=== PATIENT | female | born 1965 | race Caucasian/White ===

== ENCOUNTER 2021-03-28 16:08 | Emergency (ER) | payer MEDICAID ==
[2021-03-28 18:57] LABS: BILIRUBIN,URINE NEGATIVE (NEGATIVE); GLUCOSE, URINE (UA) NEGATIVE (NEGATIVE); KETONES,URINE (UA) NEGATIVE (NEGATIVE); LEUKOCYTE ESTERASE, URINE MODERATE (NEGATIVE); NITRITE,URINE POSITIVE (NEGATIVE); OCCULT BLOOD,URINE SMALL (NEGATIVE); PH,URINE 6.5 PH (5.0-7.5); PROTEIN,URINE TRACE mg/dL (NEGATIVE); UROBILINOGEN,URINE 0.2 (NORMAL) E.U./dL (NORMAL)
[2021-03-28 18:58] LABS: CLARITY,URINE HAZY (CLEAR)
[2021-03-28 19:01] LABS: HCG UR QUAL NEGATIVE
[2021-03-28] MEDS ORDERED: cephALEXin 250 MG CAPSULE PO STA (19:14)
[2021-03-28] MEDS ORDERED: PHENAZOPYRIDINE 100 MG TABLET PO STA (19:14)
[2021-03-28 19:16] LABS: BACTERIA,URINE Moderate /HPF (None Seen); SQUAMOUS EPITHELIAL CELL,UR NONE SEEN (<= Few)
--- NOTE | 2021-03-28 19:16 | ED Physician Documentation ---
History of Present Illness - Stated complaint Stated Complaint: FEMALE - Chief complaint Chief Complaint: UTI - Additonal information Additional information: 55-year-old female presents the emergency department for evaluation of dysuria urgency and frequency for about 1 week. No fevers no vomiting. No flank pain. No history of recurrent UTI. No history of renal stones she otherwise appears very well. Nondiabetic. Review of Systems Constitutional: reports: Reviewed and negative Nose: reports: Reviewed and negative Throat: reports: Dental pain / toothache Cardiac: reports: Reviewed and negative Respiratory: reports: Reviewed and negative GI: reports: Abdominal Pain. denies: Nausea, Vomiting, Constipation, Bloody / black stool : reports: Dysuria, Frequency, Hesitancy. denies: Hematuria Skin: reports: Reviewed and negative PD PAST MEDICAL HISTORY - Past Medical History Past Medical History: Yes Cardiovascular: Hypertension Respiratory: None Neuro: None Endocrine/Autoimmune: None GI: GERD BIOMEDICAL EQUIPMENT SPECIALIST: None : None HEENT: Chronic vision loss Psych: None Musculoskeletal: None - Past Surgical History Past Surgical History: No - Present Medications Home Medications: Ambulatory Orders Medication Instructions Recorded Confirmed Phenazopyridine HCl [Pyridium] 200 mg PO TID #6 tablet 03/28/21 cephALEXin [Keflex] 500 mg PO BID #14 03/28/21 - Allergies Allergies/Adverse Reactions: Allergies Allergy/AdvReac Type Severity Reaction Status Date / Time No Known Drug Allergies Allergy Verified 03/28/21 16:17 - Social History Does the pt smoke?: No Smoking Status: Never smoker Does the pt drink ETOH?: No Does the pt have substance abuse?: No - Immunizations Immunizations are current?: Yes - POLST Patient has POLST: No PD ED PE NORMAL - General General: Alert and oriented X 3, No acute distress - HEENT HEENT: PERRL - Cardiac Cardiac: RRR, No murmur - Respiratory Respiratory: Clear bilaterally - Abdomen Abdomen: Normal bowel sounds, Soft, Non distended. No: Non tender (Mild suprapubic tenderness without guarding or rebound. No flank pain. No CVA tenderness.) - Female Female : Deferred Results - Vitals Vitals: Vital Signs - 24 hr 03/28/21 16:13 Temperature 37.6 C Heart Rate 111 H Respiratory 16 Rate Blood Pressure 157/72 H O2 Saturation 98 Oxygen O2 Source Room air - Labs Labs: Laboratory Tests 03/28/21 18:48 Urine Color YELLOW Urine Clarity HAZY Urine pH 6.5 Ur Specific [place] 1.010 Urine Protein TRACE Urine Glucose (UA) NEGATIVE Urine Ketones NEGATIVE Urine Occult Blood SMALL H Urine Nitrite POSITIVE H Urine Bilirubin NEGATIVE Urine Urobilinogen 0.2 (NORMAL) Ur Leukocyte Esterase MODERATE H Ur Microscopic Review INDICATED Urine Culture Comments Not Reportable Urine HCG, Qual NEGATIVE PD MEDICAL DECISION MAKING - ED course Complexity details: reviewed results ED course: This is a well-appearing 55-year-old female that presents emergency department with 1 week of dysuria urgency and frequency. UA is consistent with infection. However exam and history is not consistent with an ascending or pyelonephritis. Patient was given Keflex and Pyridium here. Will be discharged with 1 week of Keflex. Emergent return precautions were discussed for worsening symptoms. Departure - Departure Disposition: Home, Self Care Clinical Impression: Acute cystitis Qualifiers: Hematuria presence: without hematuria Qualified Code(s): N30.00 - Acute cystitis without hematuria Condition: Stable Record reviewed to determine appropriate education?: Yes Instructions: ED UTI Cystitis Female Prescriptions: cephALEXin [Keflex] 500 mg PO BID #14 Phenazopyridine HCl [Pyridium] 200 mg PO TID #6 tablet Comments: Infection. Your firstMarianne you do have a of antibiotic was given here in the ER. We also prescribed a medication called Pyridium that will help reduce the bladder pain discomfort and spasm. It will however turn your urine bright orange. Tomorrow morning please fill the prescription for the cephalexin to begin taking twice daily for the next 7 days. If at any point your symptoms are worsening, you develop fevers develop sudden severe belly pain have uncontrolled vomiting please return to the ER for a second evaluation.
[2021-03-28 19:21] VITALS: BP 140/71
== END 2021-03-28 19:21 | disposition home or self-care (01) ==
LOC: ED 16:08
DX: N30.00 Acute cystitis without hematuria (principal); I10 Essential (primary) hypertension
CPT/HCPCS: 81001; 81025; 87086; 87181; 99283; A9270; 81003

== ENCOUNTER 2021-03-31 15:27 | Emergency (ER) | payer MEDICAID ==
[2021-03-31 15:46] VITALS: BP 144/70
[2021-03-31] MEDS ORDERED: MECLIZINE 12.5 MG TABLET PO STA (16:00)
--- NOTE | 2021-03-31 16:02 | ED Physician Documentation ---
History of Present Illness - Stated complaint Stated Complaint: VOMIT/FEVER/DIZZY - Chief complaint Chief Complaint: General - History obtained from History obtained from: Patient - Additonal information Additional information: Fairly healthy 55-year-old woman was seen here on Tuesday for cystitis. Started on cephalexin. This morning she developed vertigo and vomiting. It is worse if she turns her head. She had a headache on Tuesday when that she had a cystitis and that is much better now. Denies any other neurologic symptoms. Review of Systems Constitutional: denies: Fever, Chills Eyes: reports: Reviewed and negative Ears: reports: Reviewed and negative Nose: reports: Reviewed and negative Throat: reports: Reviewed and negative Cardiac: reports: Reviewed and negative Respiratory: reports: Reviewed and negative PD PAST MEDICAL HISTORY - Past Medical History Cardiovascular: Hypertension Respiratory: None Neuro: None Endocrine/Autoimmune: None GI: GERD DENTAL RECEPTIONIST: None : None HEENT: Chronic vision loss Psych: None Musculoskeletal: None - Past Surgical History Past Surgical History: No - Present Medications Home Medications: Ambulatory Orders Medication Instructions Recorded Confirmed Phenazopyridine HCl [Pyridium] 200 mg PO TID #6 tablet 03/28/21 cephALEXin [Keflex] 500 mg PO BID #14 03/28/21 Meclizine HCl [Motion Sickness] 25 mg PO Q6H PRN #10 tablet 03/31/21 Nitrofurantoin [Macrobid] 1 cap PO BID #6 cap 03/31/21 - Allergies Allergies/Adverse Reactions: Allergies Allergy/AdvReac Type Severity Reaction Status Date / Time No Known Drug Allergies Allergy Verified 03/31/21 15:41 - Social History Does the pt smoke?: No Smoking Status: Never smoker Does the pt drink ETOH?: No Does the pt have substance abuse?: No - Immunizations Immunizations are current?: Yes - POLST Patient has POLST: No PD ED PE NORMAL - Vitals Vital signs reviewed: Yes - General General: Alert and oriented X 3, No acute distress - HEENT HEENT: PERRL, Other (Mild horizontal nystagmus on leftward gaze. She has normal [id number] and [id number] testing.) - Neck Neck: Supple, no meningeal sign, No bony TTP - Cardiac Cardiac: RRR, No murmur - Respiratory Respiratory: No respiratory distress, Clear bilaterally - Abdomen Abdomen: Non tender - Neuro Neuro: Alert and oriented X 3, one piece expansion maker hand 2-12 intact, No motor deficit, No sensory deficit, Normal speech Eye Opening: Spontaneous Motor: Obeys Commands Verbal: Oriented GCS Score: 15 - Psych Psych: Normal mood, Normal affect Results - Vitals Vitals: Vital Signs - 24 hr 03/31/21 15:41 Temperature 36.6 C Heart Rate 98 Respiratory 16 Rate Blood Pressure 144/70 H O2 Saturation 97 Oxygen O2 Source Room air PD MEDICAL DECISION MAKING - ED course ED course: 55-year-old woman with resolving cystitis but now has developed peripheral vertigo treated with meclizine. No sign or symptom of central cause. Departure - Departure Disposition: 01 Home, Self Care Clinical Impression: Vertigo Condition: Good Record reviewed to determine appropriate education?: Yes Instructions: ED Vertigo Unspecified Prescriptions: Nitrofurantoin [Macrobid] 1 cap PO BID #6 cap Meclizine HCl [Motion Sickness] 25 mg PO Q6H PRN #10 tablet PRN Reason: Vertigo Comments: Again, I am not convinced that the antibiotic was the cause of your symptoms, this may just be coincidental. That said I am switching her antibiotic. Return for new or worsening symptoms. Follow-up with your physician regardless.
== END 2021-03-31 16:13 | disposition home or self-care (01) ==
LOC: ED 15:27
DX: H81.399 Other peripheral vertigo, unspecified ear (principal); I10 Essential (primary) hypertension
CPT/HCPCS: 99282; 99284; A9270

== ENCOUNTER 2021-09-15 13:36 | Outpatient (CLI) | payer OTHER ==
--- NOTE | 2021-09-16 16:05 | Mammography Report ---
BILATERAL DIGITAL SCREENING MAMMOGRAM 3D/2D: 09/15/2021 CLINICAL: Baseline exam. Routine screening. No prior exams were available for comparison. The tissue of both breasts is extremely dense, which l owers the sensitivity of mammography. No significant masses, calcifications, or other findings are seen in either breast. IMPRESSION: NEGATIVE There is no mammographic evidence of malignancy. A 1 year screening mammogram is recommended. This exam was interpreted at Station ID: [id number]. NOTE: For mammograms, a report in lay terms will be sent to the patient. Approximately 15% of breast malignancies will not be visualized mammographically. In the management of a palpable breast mass, a negative mammogram must not discourage biopsy of a clinically suspicious lesion. Electronically Signed By: Sabrina centeno/tiffany:09/15/2021 16:45:55 ACR BI-RADS Category 1: Negative 3341F PARENCHYMAL PATTERN: (VD) - The breast(s) demonstrate(s) extremely dense parenchyma, limiting the sen sitivity of mammography. BI-RADS CATEGORY: (1) - 1 RECOMMENDATION: (ANNUAL) - Recommend routine annual screening mammography. [id number] 1 year screening LATERALITY: (B)
== END 2021-09-15 13:37 | disposition home or self-care (01) ==
LOC: DI 13:36
PROVIDERS: ATTEND Internal Medicine
DX: Z12.31 Encounter for screening mammogram for malignant neoplasm of breast (principal)

== ENCOUNTER 2022-06-22 08:00 | Outpatient (CLI) | payer OTHER | END 2022-06-22 23:59 | disposition home or self-care (01) | LOC: LAB.N 08:00 | PROVIDERS: ATTEND Nurse Practitioner | DX: R30.0 Dysuria (principal) | CPT/HCPCS: 87086; 87181 ==

== ENCOUNTER 2022-09-01 17:31 | Outpatient (CLI) | payer OTHER ==
--- NOTE | 2022-09-02 09:27 | XRAY Report ---
PROCEDURE: Hand 2 View LT INDICATIONS: CONTUSION OF L HAND TECHNIQUE: 2 views of the hand(s) acquired. COMPARISON: None FINDINGS: Bones: There are linear lucencies with suggestion of cortical disruption involving the distal left ra dius with extension to the radiocarpal joint. There is mild surrounding soft tissue swelling. Remaind er of the osseous structures appear intact without acute or subacute fractures identified. No suspici ous bony lesions. Chronic ossification noted over the distal ulnar styloid process. Soft tissues: No suspicious soft tissue calcifications. IMPRESSION: Possible nondisplaced intra-articular fracture of the distal left radius. Recommend dedicated evaluation of the left wrist for further evaluation. Reviewed by: Vikram Rincon MD on 09/02/2022 9:25 AM PST Approved by: Vikram Rincon MD on 09/02/2022 9:25 AM PST Station ID: [id number]
== END 2022-09-01 23:59 | disposition home or self-care (01) ==
LOC: DI.N 17:31
PROVIDERS: ATTEND Nurse Practitioner
DX: S60.222A Contusion of left hand, initial encounter (principal)